=== PATIENT | male | born 1970 | race African-American/Black ===

== ENCOUNTER 2016-10-29 13:59 | Emergency (ER) | payer SELFPAY ==
[~2016-10-29] VITALS: Ht 167.6 cm; Wt 68.0 kg
[2016-10-29 14:39] VITALS: BP 102/78
== END 2016-10-29 17:16 | disposition left against medical advice (07) ==
LOC: ER 14:54
DX: Z53.21 Procedure and treatment not carried out due to patient leaving prior to being seen by health care provider (principal)